=== PATIENT | male | born 1940 | race Caucasian/White ===

== ENCOUNTER 2018-09-20 21:20 | Inpatient (IN) | payer MEDICARE, OTHER ==
[~2018-09-20] VITALS: Ht 172.7 cm; Wt 79.0 kg
[~2018-09-20 21:20] MED LIST: ASPI81 PO; ATOR20TA86 PO; CARV6 PO; DOCU250C91 PO; FOLI1CAP2 PO; INSLAN SQ; INSU100V SQ; IPRA4AER IH; LIDO700A15 TP; PANT40TA25 PO; POLY238P2 PO
[2018-09-20] MEDS ORDERED: ACETAMINOPHEN 325 MG TABLET PO ONE (21:45)
[2018-09-20 21:59] LABS: GLUCOSE,POINT OF CARE 227 MG/DL (70-110)
[2018-09-20] MEDS ORDERED: ALBUTEROL SULFATE 2.5 MG/0.5 ML NEB SOLUTION NEB PRN (22:00)
[2018-09-20] MEDS ORDERED: DEXTROSE 50%-WATER 25 GM/50 ML SYRINGE IVP PRN (22:00)
[2018-09-20] MEDS ORDERED: BISACODYL 10 MG RECTAL RECTAL SUPPOSITORY PR PRN (22:00)
[2018-09-20] MEDS ORDERED: *CLINICAL-LEVOFLOXACIN IVPB DOSING CLINICAL ONE (22:00)
[2018-09-20 22:27] LABS: BASOPHILS % (AUTO) 0.5 % (0.0-2.0); EOSINOPHILS % (AUTO) 0 % (1.0-6.0); HEMATOCRIT 30.4 % (41-53); HEMOGLOBIN 9.4 g/dL (13.5-17.5); LYMPHOCYTES # (AUTO) 1.2 K/uL (1.0-4.8); LYMPHOCYTES % (AUTO) 4.9 % (22.0-44.0); MEAN CORPUSCULAR HEMOGLOBIN 28.3 pg (26.0-34.0); MEAN CORPUSCULAR HGB CONC 30.9 G/dL (31.0-37.0); MEAN CORPUSCULAR VOLUME 92 fL (80-100); MONOCYTES # (AUTO) 2.2 K/uL (0.1-1.0); MONOCYTES % (AUTO) 8.8 % (2.0-9.0); NEUTROPHILS # (AUTO) 21.8 K/uL (1.8-7.7); PLATELET COUNT (AUTO) 254 K/uL (150-450); RED BLOOD CELL COUNT(AUTO) 3.32 MIL/uL (4.50-5.90); RED CELL DISTRIBUTION WIDTH 19.1 % (11.5-14.5)
[2018-09-20 22:30] LABS: NEUTROPHILS % (AUTO) 85.8 % (40.0-70.0)
[2018-09-20] MEDS ORDERED: VANCOMYCIN HCL 1.25 GM in DEXTROSE 5%-WATER 250 ML IV ONE (22:30)
[2018-09-20 22:38] LABS: ANION GAP 10 mmol/L (8-16); CALCIUM, TOTAL 8.6 mg/dL (8.8-10.5); CARBON DIOXIDE 29 mmol/L (22-29); CHLORIDE 101 mmol/L (98-107); CREATININE 1.76 mg/dL (0.60-1.30); GLOMERULAR FILTR. RATE CALC 38 mL/min (>60); GLUCOSE,RANDOM 270 mg/dL (70-110); POTASSIUM 4.1 mmol/L (3.5-5.1); SODIUM SERUM 140 mmol/L (136-145); UREA NITROGEN, BLOOD 12 mg/dL (7-18)
[2018-09-20 22:44] LABS: ALANINE AMINOTRANSFERASE 10 U/L (12-78); ALBUMIN 2.9 g/dL (3.4-5.0); ALKALINE PHOSPHATASE 100 U/L (46-116); ASPARTATE AMINOTRANSFERASE 17 U/L (15-37); BILIRUBIN,TOTAL 0.3 mg/dL (0.1-1.0); TOTAL PROTEIN, SERUM 7.1 g/dL (6.4-8.2)
[2018-09-20] MEDS ORDERED: SODIUM CHLORIDE 0.9% 1,000 ML IV ONE (23:00)
[2018-09-20 23:03] LABS: APPEARANCE,URINE TURBID (CLEAR); BILIRUBIN,URINE NEGATIVE (NEGATIVE); GLUCOSE, URINE (UA) 250 mg/dL (NEGATIVE); KETONES,URINE TRACE mg/dL (NEGATIVE); LEUKOCYTE ESTERASE ,URINE LARGE (NEGATIVE); NITRATE,URINE NEGATIVE (NEGATIVE); OCCULT BLOOD,URINE LARGE (NEGATIVE); PROTEIN,URINE SEE CONFIRM (NEGATIVE); UROBILINOGEN,URINE 0.2 mg/dL (<=1.0)
[2018-09-20 23:04] LABS: LACTIC ACID 2.1 mmol/L (0.4-2.0)
[2018-09-20 23:21] LABS: BACTERIA,URINE Few /HPF (None Seen); SQUAMOUS EPITHELIAL CELL,UR Few /LPF (None Seen); WBC,URINE >100 /HPF (0-5)
[2018-09-20 23:22] LABS: SULFOSALICYLIC ACID,URINE 3+ (Negative)
[2018-09-20] MEDS ORDERED: MAGNESIUM SULFATE 2 GM/WATER 50 ML IV ONE (23:45)
[2018-09-20] MEDS ORDERED: LEVOFLOXACIN 500 MG/D5% WATER 100 ML IV ONE (23:59)
[2018-09-21] VITALS (7 sets, daily range): BP systolic 91–103; BP diastolic 50–62
[2018-09-21] MEDS ORDERED: SODIUM CHLORIDE 0.9% 250 ML IV ONE (02:04)
[2018-09-21] MEDS: INSULIN LISPRO 100 UNITS/ML SQ PRN ×4 (06:53→21:24)
[2018-09-21] MEDS ORDERED: VANCOMYCIN HCL 1 GM/D5% WATER 200 ML IV PRN (07:30)
[2018-09-21 08:55] LABS: GLUCOMETER DEV NAME(LOC) 5S.1; GLUCOSE,POINT OF CARE 183 MG/DL (70-110)
[2018-09-21] MEDS: HEPARIN SODIUM,PORCINE 5,000 UNITS/ML VIAL SQ SCH ×2 (09:29→20:01)
[2018-09-21] MEDS: DOCUSATE SODIUM 100 MG CAPSULE PO SCH ×2 (09:30→20:01)
[2018-09-21] MEDS: FAMOTIDINE 20 MG TABLET PO SCH (09:30)
[2018-09-21] MEDS: ACETAMINOPHEN 325 MG TABLET PO PRN ×2 (16:47→21:25)
[2018-09-21 19:45] LABS: GLUCOMETER DEV NAME(LOC) 5N.2; GLUCOSE,POINT OF CARE 205 MG/DL (70-110)
[2018-09-21] MEDS ORDERED: MAGNESIUM SULFATE 2 GM in DEXTROSE 5%-WATER 50 ML IV ONE (21:00)
[2018-09-22] MEDS: ACETAMINOPHEN 325 MG TABLET PO PRN (01:45)
[2018-09-22 02:34] LABS: GLUCOMETER DEV NAME(LOC) 5N.2; GLUCOSE,POINT OF CARE 157 MG/DL (70-110)
[2018-09-22 04:17] VITALS: BP 107/63
[2018-09-22 06:26] LABS: BASOPHILS % (AUTO) 0.3 % (0.0-2.0); EOSINOPHILS % (AUTO) 2.2 % (1.0-6.0); HEMATOCRIT 27.3 % (41-53); HEMOGLOBIN 8.4 g/dL (13.5-17.5); LYMPHOCYTES # (AUTO) 1.8 K/uL (1.0-4.8); LYMPHOCYTES % (AUTO) 11.2 % (22.0-44.0); MEAN CORPUSCULAR HEMOGLOBIN 28.4 pg (26.0-34.0); MEAN CORPUSCULAR HGB CONC 30.7 G/dL (31.0-37.0); MEAN CORPUSCULAR VOLUME 92 fL (80-100); MONOCYTES # (AUTO) 1.2 K/uL (0.1-1.0); MONOCYTES % (AUTO) 7.1 % (2.0-9.0); NEUTROPHILS % (AUTO) 79.2 % (40.0-70.0); PLATELET COUNT (AUTO) 204 K/uL (150-450); RED BLOOD CELL COUNT(AUTO) 2.96 MIL/uL (4.50-5.90); RED CELL DISTRIBUTION WIDTH 19.4 % (11.5-14.5)
[2018-09-22 06:51] LABS: CALCIUM, TOTAL 8.7 mg/dL (8.8-10.5); CREATININE 2.17 mg/dL (0.60-1.30); PHOSPHORUS 3.7 mg/dL (2.5-4.9); POTASSIUM 3.8 mmol/L (3.5-5.1); VANCOMYCIN,RANDOM 8.3 mcg/mL (25.0-50.0)
[2018-09-22] MEDS ORDERED: VANCOMYCIN HCL 1.25 GM in DEXTROSE 5%-WATER 250 ML IV ONE (07:00)
[2018-09-22 07:25] VITALS: BP 148/72
[2018-09-22] MEDS ORDERED: EPOETIN ALFA 10,000 UNITS/ML 2 ML VIAL SQ SCH (09:00)
[2018-09-22] MEDS: DOCUSATE SODIUM 100 MG CAPSULE PO SCH ×2 (11:28→20:39)
[2018-09-22] MEDS: FAMOTIDINE 20 MG TABLET PO SCH (11:28)
[2018-09-22] MEDS: HEPARIN SODIUM,PORCINE 5,000 UNITS/ML VIAL SQ SCH ×2 (11:30→20:39)
[2018-09-22 11:39] VITALS: BP 106/64
[2018-09-22 11:54] LABS: GLUCOMETER DEV NAME(LOC) 5S.1; GLUCOSE,POINT OF CARE 128 MG/DL (70-110)
[2018-09-22 11:54] LABS: GLUCOMETER DEV NAME(LOC) 5S.1; GLUCOSE,POINT OF CARE 102 MG/DL (70-110)
[2018-09-22 11:55] LABS: INFLUENZA TYPE A NEGATIVE FOR TYPE A (NEGATIVE); INFLUENZA TYPE B NEGATIVE FOR TYPE B (NEGATIVE)
[2018-09-22] MEDS ORDERED: HEPARIN SODIUM,PORCINE 1,000 UNITS/ML VIAL IVP ONE (12:00)
[2018-09-22 15:52] VITALS: BP 101/56
[2018-09-22 15:55] VITALS: BP 156/83
[2018-09-22 17:44] LABS: CREATININE,URINE 76.8 mg/dL (30.0-125.0)
[2018-09-22 17:45] LABS: SODIUM TIMED,URINE 64 mmol/L (20-110); TPROTEIN TIMED,URINE 123 mg/dL; URINE UREA NITROGEN, TIMED 363 mg/dL (350-1000)
[2018-09-22 17:50] LABS: COLLECTION TIME,URINE 24 HR; SODIUM URINE, 24HR CALC 77 mmol/24H (40-220); TPROTEIN URINE, 24HRS COLL 1476 mg/24Hr (0-165); UREA NITROGEN URINE,24HR CALC 4356 mg/24H (7000-20000)
[2018-09-22 17:52] LABS: CREATININE,SERUM FOR CRCL 2.17 mg/dL (0.60-1.30)
[2018-09-22 19:10] LABS: GLUCOMETER DEV NAME(LOC) 5N.2; GLUCOSE,POINT OF CARE 139 MG/DL (70-110)
[2018-09-22 19:24] VITALS: BP 98/60
[2018-09-22] MEDS: GABAPENTIN 100 MG CAPSULE PO SCH (20:39)
[2018-09-22] MEDS: INSULIN LISPRO 100 UNITS/ML SQ PRN (20:54)
[2018-09-22] MEDS: LEVOFLOXACIN 500 MG/D5% WATER 100 ML IV SCH (21:19)
[2018-09-23 00:01] VITALS: BP 109/61
[2018-09-23 00:30] LABS: GLUCOMETER DEV NAME(LOC) 5S.1; GLUCOSE,POINT OF CARE 175 MG/DL (70-110)
[2018-09-23 04:22] VITALS: BP 133/74
[2018-09-23] MEDS ORDERED: SODIUM CHLORIDE 0.9% 250 ML IV ONE (06:45)
[2018-09-23 07:24] LABS: GLUCOMETER DEV NAME(LOC) 5N.1; GLUCOSE,POINT OF CARE 141 MG/DL (70-110)
[2018-09-23 08:04] LABS: GLUCOMETER DEV NAME(LOC) 5N.2; GLUCOSE,POINT OF CARE 119 MG/DL (70-110)
[2018-09-23 08:22] VITALS: BP 129/86
[2018-09-23] MEDS ORDERED: LACTULOSE 20 GM/30 ML SOLUTION UDCUP PO ONE (09:00)
[2018-09-23] MEDS: FAMOTIDINE 20 MG TABLET PO SCH (09:05)
[2018-09-23] MEDS: DOCUSATE SODIUM 100 MG CAPSULE PO SCH ×2 (09:05→20:27)
[2018-09-23] MEDS: HEPARIN SODIUM,PORCINE 5,000 UNITS/ML VIAL SQ SCH ×2 (09:05→20:27)
[2018-09-23] MEDS: INSULIN LISPRO 100 UNITS/ML SQ PRN ×2 (11:26→20:28)
[2018-09-23 12:15] VITALS: BP 102/68
[2018-09-23] MEDS: GuaiFENesin [SUGAR-FREE] 200 MG/10 ML SOLUTION UDCUP PO SCH ×3 (14:16→20:27)
[2018-09-23 14:24] LABS: GLUCOMETER DEV NAME(LOC) 5S.1; GLUCOSE,POINT OF CARE 195 MG/DL (70-110)
[2018-09-23 15:56] VITALS: BP 126/73
[2018-09-23 18:05] LABS: GLUCOMETER DEV NAME(LOC) 5N.2; GLUCOSE,POINT OF CARE 121 MG/DL (70-110)
[2018-09-23 19:28] VITALS: BP 123/73
[2018-09-23] MEDS: GABAPENTIN 100 MG CAPSULE PO SCH (20:27)
[2018-09-24 00:14] VITALS: BP 138/80
[2018-09-24] MEDS: INSULIN LISPRO 100 UNITS/ML SQ PRN ×3 (05:33→21:45)
[2018-09-24 05:59] VITALS: BP 119/77
[2018-09-24 06:38] LABS: BASOPHILS % (AUTO) 0.8 % (0.0-2.0); EOSINOPHILS % (AUTO) 5.8 % (1.0-6.0); HEMATOCRIT 29.5 % (41-53); HEMOGLOBIN 9.3 g/dL (13.5-17.5); LYMPHOCYTES # (AUTO) 1.6 K/uL (1.0-4.8); LYMPHOCYTES % (AUTO) 25.5 % (22.0-44.0); MEAN CORPUSCULAR HGB CONC 31.6 G/dL (31.0-37.0); MEAN CORPUSCULAR VOLUME 92 fL (80-100); MONOCYTES # (AUTO) 0.8 K/uL (0.1-1.0); MONOCYTES % (AUTO) 12.6 % (2.0-9.0); NEUTROPHILS # (AUTO) 3.4 K/uL (1.8-7.7); NEUTROPHILS % (AUTO) 55.3 % (40.0-70.0); PLATELET COUNT (AUTO) 255 K/uL (150-450); RED BLOOD CELL COUNT(AUTO) 3.22 MIL/uL (4.50-5.90); RED CELL DISTRIBUTION WIDTH 18.9 % (11.5-14.5)
[2018-09-24 06:55] LABS: CREATININE 1.62 mg/dL (0.60-1.30); POTASSIUM 4.4 mmol/L (3.5-5.1)
[2018-09-24 07:14] LABS: GLUCOMETER DEV NAME(LOC) 5S.1; GLUCOSE,POINT OF CARE 155 MG/DL (70-110)
[2018-09-24 07:14] LABS: GLUCOMETER DEV NAME(LOC) 5N.2; GLUCOSE,POINT OF CARE 220 MG/DL (70-110)
[2018-09-24 08:35] VITALS: BP 138/81
[2018-09-24] MEDS: FAMOTIDINE 20 MG TABLET PO SCH (09:07)
[2018-09-24] MEDS: GuaiFENesin [SUGAR-FREE] 200 MG/10 ML SOLUTION UDCUP PO SCH (09:07)
[2018-09-24] MEDS: DOCUSATE SODIUM 100 MG CAPSULE PO SCH ×2 (09:07→20:46)
[2018-09-24] MEDS: HEPARIN SODIUM,PORCINE 5,000 UNITS/ML VIAL SQ SCH ×2 (09:08→20:47)
[2018-09-24 12:13] VITALS: BP 121/84
[2018-09-24 15:15] VITALS: BP 128/80
[2018-09-24 17:20] LABS: GLUCOMETER DEV NAME(LOC) 5S.1; GLUCOSE,POINT OF CARE 167 MG/DL (70-110)
[2018-09-24 19:24] LABS: GLUCOMETER DEV NAME(LOC) 5N.2; GLUCOSE,POINT OF CARE 127 MG/DL (70-110)
[2018-09-24 20:11] VITALS: BP 123/77
[2018-09-24] MEDS: GABAPENTIN 100 MG CAPSULE PO SCH (20:46)
[2018-09-24] MEDS: LEVOFLOXACIN 500 MG/D5% WATER 100 ML IV SCH (21:43)
[2018-09-24 22:25] LABS: GLUCOMETER DEV NAME(LOC) 5S.1; GLUCOSE,POINT OF CARE 188 MG/DL (70-110)
[2018-09-25 00:34] VITALS: BP 126/77
[2018-09-25 04:39] VITALS: BP 144/86
[2018-09-25 06:44] LABS: GLUCOMETER DEV NAME(LOC) 5S.1; GLUCOSE,POINT OF CARE 134 MG/DL (70-110)
[2018-09-25 07:36] LABS: CREATININE 1.73 mg/dL (0.60-1.30); POTASSIUM 4.1 mmol/L (3.5-5.1); URIC ACID 3.7 mg/dL (2.6-7.2)
[2018-09-25 07:38] VITALS: BP 150/91
[2018-09-25] MEDS: DOCUSATE SODIUM 100 MG CAPSULE PO SCH (08:28)
[2018-09-25] MEDS: FAMOTIDINE 20 MG TABLET PO SCH (08:28)
[2018-09-25] MEDS: HEPARIN SODIUM,PORCINE 5,000 UNITS/ML VIAL SQ SCH (08:28)
[2018-09-25] MEDS ORDERED: EPOETIN ALFA 10,000 UNITS/ML VIAL SQ SCH (09:00)
[2018-09-25 10:57] VITALS: BP 137/94
[2018-09-25] MEDS: INSULIN LISPRO 100 UNITS/ML SQ PRN (12:24)
[2018-09-25] MEDS ORDERED: LEVO250 PO (13:29)
[2018-09-25] MEDS ORDERED: GABAPENTIN 100 MG CAPSULE PO SCH (21:00)
[2018-09-25 21:20] LABS: GLUCOMETER DEV NAME(LOC) 5N.1; GLUCOSE,POINT OF CARE 187 MG/DL (70-110)
[2018-09-26] MEDS ORDERED: LEVOFLOXACIN 750 MG/D5% WATER 150 ML IV SCH (22:00)
== END 2018-09-25 14:30 | disposition home health service (06) | DRG 871 ==
LOC: EMS 21:21 → 5N 23:16 → 5S 09-25 03:39
PROVIDERS: ADMIT Internal Medicine; ATTEND Internal Medicine
PROC: 5A1D70Z Performance of Urinary Filtration, Intermittent, Less than 6 Hours Per Day (ICD-10-PCS; principal; 2018-09-22)
DX: A41.9 Sepsis, unspecified organism (principal); N18.6 End stage renal disease; E43 Unspecified severe protein-calorie malnutrition; J96.90 Respiratory failure, unspecified, unspecified whether with hypoxia or hypercapnia; I13.2 Hypertensive heart and chronic kidney disease with heart failure and with stage 5 chronic kidney disease, or end stage renal disease; I50.40 Unspecified combined systolic (congestive) and diastolic (congestive) heart failure; J98.11 Atelectasis; N39.0 Urinary tract infection, site not specified; E11.22 Type 2 diabetes mellitus with diabetic chronic kidney disease; I25.10 Atherosclerotic heart disease of native coronary artery without angina pectoris; B96.20 Unspecified Escherichia coli [E. coli] as the cause of diseases classified elsewhere; B96.89 Other specified bacterial agents as the cause of diseases classified elsewhere; D63.1 Anemia in chronic kidney disease; E78.00 Pure hypercholesterolemia, unspecified; E11.40 Type 2 diabetes mellitus with diabetic neuropathy, unspecified; E78.5 Hyperlipidemia, unspecified; I25.2 Old myocardial infarction; Z86.73 Personal history of transient ischemic attack (TIA), and cerebral infarction without residual deficits; Z79.4 Long term (current) use of insulin; Z79.899 Other long term (current) drug therapy; Z99.2 Dependence on renal dialysis; Z68.26 Body mass index [BMI] 26.0-26.9, adult
CPT/HCPCS: 51702; 81050; 82575; 83605; 83735; 84100; 84156; 84166; 84300; 84540; 84550; 87040; 87081; 87086; 87340; 87804; 93005; 96365; 96367; 97162; G0378; J0885; J1644; J1956; J3370; J3475; J7030; J7050; J7060